=== PATIENT | male | born 1960 | race Caucasian/White ===

== ENCOUNTER 2018-06-05 13:16 | Inpatient (IN) | payer SELFPAY ==
[~2018-06-05] VITALS: Ht 175.3 cm; Wt 64.0 kg
[2018-06-05] MEDS ORDERED: NS IV 500 ML 500 ML IV ONE (14:10)
[2018-06-05] MEDS ORDERED: ONDANSETRON 4 MG/2 ML (SDV) Z0FRAN IVP ONE (14:15)
[2018-06-05 14:20] LABS: BASOPHILS % (AUTO) 1 % (0-10); EOSINOPHILS # (AUTO) 0.1 10^3/uL (0.0-0.3); EOSINOPHILS % (AUTO) 2 % (0-10); HEMATOCRIT 30 % (40-54); HEMOGLOBIN 9.5 G/DL (13.3-17.7); LYMPHOCYTES # (AUTO) 1.3 X 10^3 (1.0-4.0); LYMPHOCYTES % (AUTO) 37 % (12-44); MEAN CORPUSCULAR HEMOGLOBIN 27 PG (25-34); MEAN CORPUSCULAR HGB CONC 32 G/DL (32-36); MEAN CORPUSCULAR VOLUME 83 FL (80-99); MEAN PLATELET VOLUME 9.8 FL (7.4-10.4); MONOCYTES # (AUTO) 0.5 X 10^3 (0.0-1.0); MONOCYTES % (AUTO) 16 % (0-12); NEUTROPHILS # (AUTO) 1.6 X 10^3 (1.8-7.8); NEUTROPHILS % (AUTO) 45 % (42-75); PLATELET COUNT 92 10^3/uL (130-400); RED BLOOD COUNT 3.56 10^6/uL (4.35-5.85); RED CELL DISTRIBUTION WIDTH 17.4 % (10.0-14.5); WHITE BLOOD COUNT 3.5 10^3/uL (4.3-11.0)
[2018-06-05] MEDS ORDERED: LACT10SO46 PO (14:27)
[2018-06-05] MEDS ORDERED: MIDO10TA PO (14:27)
[2018-06-05] MEDS ORDERED: FURO40TA4 PO (14:27)
[2018-06-05] MEDS ORDERED: PANT40TA2 PO (14:27)
[2018-06-05] MEDS ORDERED: OXYC10TA7 PO (14:27)
[2018-06-05] MEDS ORDERED: SPIR100T4 PO (14:27)
--- NOTE | 2018-06-05 14:34 | ED GI ---
General Chief Complaint: Catheter/Drain/Tube Problems Stated Complaint: DRAIN TUBE LEAKING Nursing Triage Note: ARRIVED VIA AMB WITH WALKER TO ROOM 05. UPON WALKING PT IS LEAKING COPIUS AMTS OF FLUID FROM DRAINS IN STOMACH ONTO THE FLOOR. STATES HE MOVED HERE TWO DAYS AGO FROM [facility] AN HAD THE DRAINS PUT IN IN FEBRUARY FOR LIVER FAILURE. ALSO STATES HE HAS A UNDIAGNOSED CANCER OF THE ABD. WANTING TO START HEALTHCARE HERE AND POSSIBLY PUT ON HOSPICE IF NEEDED. Sepsis Screen: No Definite Risk Source of Information: Patient, Family Exam Limitations: No Limitations History of Present Illness Date Seen by Provider: Jun 05, 2018 Time Seen by Provider: 13:55 Initial Comments Here with report of having some medical condition that requires multiple tubes in his stomach and that seizure leaking or falling out. Reports that he has liver failure and hepatitis C which were from drinking. He quit drinking 20 years ago. He just got out of alf 3 days ago. Apparently he is had multiple episodes of and ultimately they released him from alf. He apparently had episodes where he vomited blood and required transfusions. He was in alf for a half years and has had these problems over the last 3 months. It started with him vomiting blood and then resuscitation followed by what he describes as and resuscitation at least 2 more times. These were also associated with vomiting blood. They did place the tubes to drain his belly because it keeps filling up (paracenteses 3 ports it appears). States that his tube is leaking but he arrives without any tubes in his belly. They drove in from [place] over the last 3 days and have been home just now recently. They considered hospice previously but they don't have a known diagnosis. He reports that he has a big mass in his belly centrally but he is not sure what that is. He does believe it is probably cancer but not sure. Timing/Duration: 2-3 Days, Getting Worse Severity/Quality: Moderate, Severe Location: Generalized Abdomen Radiation: No Radiation Activities at Onset: None Modifying Factors: Improves With Resting Associated Symptoms: No Back Pain, No Chest Pain, No Fever/Chills; Fatigue, Nausea/Vomiting; No Shortness of Air; Swelling/Mass in Abdomen, Weakness Allergies and Home Medications Allergies Coded Allergies: No Known Drug Allergies (Unverified , 06/05/18) Home Medications Furosemide 40 Mg Tablet, 40 MG PO DAILY, (Reported) Lactulose 10 Gm/15 Ml Solution, 15 ML PO DAILY, (Reported) Midodrine HCl 10 Mg Tablet, 10 MG PO TID, (Reported) Oxycodone HCl 10 Mg Tablet, 10 MG PO Q6H PRN for PAIN-SEVERE, (Reported) Pantoprazole Sodium 40 Mg Tablet.dr, 40 MG PO DAILY, (Reported) Spironolactone 100 Mg Tablet, 100 MG PO DAILY, (Reported) Patient Home Medication List Home Medication List Reviewed: Yes Review of Systems Review of Systems Constitutional: see HPI; No chills, No fever EENTM: No Symptoms Reported Respiratory: Denies Cough; Shortness of Air Cardiovascular: No Symptoms Reported Gastrointestinal: See HPI, Abdomen Distended; Denies Diarrhea; Nausea, Poor Appetite; Denies Vomiting Genitourinary: No Symptoms Reported Musculoskeletal: no symptoms reported Skin: no symptoms reported Psychiatric/Neurological: No Symptoms Reported All Other Systems Reviewed Negative Unless Noted: Yes Past Lrmenhj-Jwoget-Wwbxwm Hx Past Med/Social Hx: Reviewed Nursing Past Med/Soc Hx Patient Social History Alcohol Use: Denies Use Recreational Drug Use: No Smoking Status: Former Smoker Former Smoker, Quit: Feb 25, 2018 Recent Foreign Travel: No Contact w/Someone Who Travel: No Recent Infectious Disease Expo: No Past Medical History Surgeries: Yes Abdominal Respiratory: No Cardiac: No Neurological: No Gastrointestinal: Yes Liver Disease/Jaundice, Gastrointestinal Bleed Musculoskeletal: No Endocrine: No Cancer: Yes Family Medical History Reviewed Nursing Family Hx Physical Exam Vital Signs Vital Signs - First Documented 06/05/18 14:12 Temp 98.0 Pulse 97 Resp 16 B/P (MAP) 109/73 (85) Capillary Refill : Less Than 3 Seconds Height/Weight/BMI Height: 5'9.00" Weight: 169lbs. oz. 76.523342lz; BMI Method:Stated General Appearance: WD/WN, no apparent distress HEENT: PERRL/EOMI, pharynx normal, scleral icterus (R), scleral icterus (L) Neck: full range of motion, supple Respiratory: lungs clear, normal breath sounds Cardiovascular: regular rate, rhythm, no murmur Peripheral Pulses: 2+ Dorsalis Pedis (R), 2+ Left Dors-Pedis (L), 2+ Radial Pulses (R), 2+ Radial Pulses (L) Gastrointestinal: soft; No guarding, No rebound; tenderness, other (mild has pressure wound to the right and left lateral lower abdominal wall from previous paracenteses. He has a central one that appears to be still draining. The left one also appears to be still draining but the right one does not.) Extremities: non-tender, normal inspection Back: normal inspection, no CVA tenderness, no vertebral tenderness Male: other (has lesion to the right lateral aspect of the penis that he is unsure where it comes from. Does have 1 cm decubitus ulcer at the distal sacrum midline on the buttocks.) Neurologic/Psychiatric: alert, oriented x 3 Skin: jaundice; No rash Focused Exam Lactate Level 06/05/18 14:08: Lactic Acid Level 3.40*H Lactic Acid Level Laboratory Tests Test 06/05/18 14:08 Lactic Acid Level 3.40 MMOL/L (0.50-2.00) *H Progress/Results/Core Measures Results/Orders Lab Results Laboratory Tests Test 06/05/18 14:08 06/05/18 15:00 Range/Units White Blood Count 3.5 L 4.3-11.0 10^3/uL Red Blood Count 3.56 L 4.35-5.85 10^6/uL Hemoglobin 9.5 L 13.3-17.7 G/DL Hematocrit 30 L 40-54 % Mean Corpuscular Volume 83 80-99 FL Mean Corpuscular Hemoglobin 27 25-34 PG Mean Corpuscular Hemoglobin Concent 32 32-36 G/DL Red Cell Distribution Width 17.4 H 10.0-14.5 % Platelet Count 92 L 130-400 10^3/uL Mean Platelet Volume 9.8 7.4-10.4 FL Neutrophils (%) (Auto) 45 42-75 % Lymphocytes (%) (Auto) 37 12-44 % Monocytes (%) (Auto) 16 H 0-12 % Eosinophils (%) (Auto) 2 0-10 % Basophils (%) (Auto) 1 0-10 % Neutrophils # (Auto) 1.6 L 1.8-7.8 X 10^3 Lymphocytes # (Auto) 1.3 1.0-4.0 X 10^3 Monocytes # (Auto) 0.5 0.0-1.0 X 10^3 Eosinophils # (Auto) 0.1 0.0-0.3 10^3/uL Basophils # (Auto) 0.0 0.0-0.1 10^3/uL Sodium Level 127 L 135-145 MMOL/L Potassium Level 4.2 3.6-5.0 MMOL/L Chloride Level 94 L 98-107 MMOL/L Carbon Dioxide Level 26 21-32 MMOL/L Anion Gap 7 5-14 MMOL/L Blood Urea Nitrogen 17 7-18 MG/DL Creatinine 0.90 0.60-1.30 MG/DL Estimat Glomerular Filtration Rate > 60 BUN/Creatinine Ratio 19 Glucose Level 125 H 70-105 MG/DL Lactic Acid Level 3.40 *H 0.50-2.00 MMOL/L Calcium Level 8.1 L 8.5-10.1 MG/DL Corrected Calcium 9.8 8.5-10.1 MG/DL Total Bilirubin 6.2 H 0.1-1.0 MG/DL Aspartate Amino Transf (AST/SGOT) 150 H 5-34 U/L Alanine Aminotransferase (ALT/SGPT) 86 H 0-55 U/L Alkaline Phosphatase 117 40-136 U/L Ammonia 78 H 11-32 UMOL/L Total Protein 6.4 6.4-8.2 GM/DL Albumin 1.9 L 3.2-4.5 GM/DL Amylase Level 29 25-125 U/L Lipase 122 H 8-78 U/L Urine Color YELLOW Urine Clarity CLEAR Urine pH 5 5-9 Urine Specific [place] 1.010 L 1.016-1.022 Urine Protein 1+ H NEGATIVE Urine Glucose (UA) NEGATIVE NEGATIVE Urine Ketones NEGATIVE NEGATIVE Urine Nitrite NEGATIVE NEGATIVE Urine Bilirubin 1+ H NEGATIVE Urine Urobilinogen 8 H NORMAL MG/DL Urine Leukocyte Esterase 1+ H NEGATIVE Urine RBC (Auto) NEGATIVE NEGATIVE Urine RBC NONE /HPF Urine WBC RARE /HPF Urine Squamous Epithelial Cells NONE /HPF Urine Crystals NONE /LPF Urine Bacteria NEGATIVE /HPF Urine Casts PRESENT /LPF Urine Hyaline Casts 2-5 H /LPF Urine Mucus NEGATIVE /LPF Urine Yeast LARGE H /HPF Urine Culture Indicated NO My Orders Orders - JUDITH ABEBE MD Ammonia (06/05/18 14:10) Amylase (06/05/18 14:10) Cbc With Automated Diff (06/05/18 14:10) Comprehensive Metabolic Panel (06/05/18 14:10) Lactic Acid Analyzer (06/05/18 14:10) Lipase (06/05/18 14:10) Ua Culture If Indicated (06/05/18 14:10) Blood Culture (06/05/18 14:10) Saline Lock/Iv-Start (06/05/18 14:10) Ns Iv 500 Ml (Sodium Chloride 0.9%) (06/05/18 14:10) Ondansetron Injection (Zofran Injectio (06/05/18 14:15) Ct Chest/Abdomen/Pelvis W (06/05/18 14:49) Iohexol Injection (Omnipaque 350 Mg/Ml 1 (06/05/18 15:00) Ns (Ivpb) (Sodium Chloride 0.9%) (06/05/18 15:00) Medications Given in ED Current Medications Medications Dose Ordered Sig/Jesusita Route Start Time Stop Time Status Last Admin Dose Admin Iohexol 100 ml ONCE ONCE IV 06/05/18 15:00 06/05/18 15:06 DC 06/05/18 15:13 100 ML Ondansetron HCl 4 mg ONCE ONCE IVP 06/05/18 14:15 06/05/18 14:16 DC 06/05/18 14:19 4 MG Sodium Chloride 250 ml ONCE ONCE IV 06/05/18 15:00 06/05/18 15:06 DC 06/05/18 15:14 80 ML Sodium Chloride 500 ml @ 0 mls/hr Q0M ONCE IV 06/05/18 14:10 06/05/18 14:13 DC 06/05/18 14:20 500 MLS/HR Vital Signs/I&O 06/05/18 14:12 Temp 98.0 Pulse 97 Resp 16 B/P (MAP) 109/73 (85) Blood Pressure Mean: 85 Progress Progress Note : Progress Note Seen and evaluated. This is a very complex case in that the patient likely has liver failure in the setting of hepatitis C and probable abdominal mass. We had no records and he is a very poor historian. Given that, we will go ahead and check labs and UA and anticipate CT scan with contrast depending on renal function. CT results noted. I did discuss the case with Dr. Villarreal at 1601 and she will see the patient in the ER. I have also asked the palliative care team to evaluate as well. I will also call Dr. Mas and asked for consult from him as well due to the need for possible paracentesis. 1630: Dr. Villarreal and Devon Abebe in the emergency department evaluating the patient. We did discuss with the patient and family together regarding his current situation. Patient is at end-stage liver disease with low albumin and a large mass within the belly and abdominal ascites. This is in the setting of cirrhosis and hepatitis C. The large mass in the abdomen appears to be emanating from the left lobe of the liver consistent with hepatocellular carcinoma. We did discuss with the patient that this is not compatible with treatment and we talked about hospice. The patient and family are both in agreement with hospice and comfort measures. Dr. Villarreal has graciously accepted the patient for admission to set up hospice care. Devon Abebe with palliative care will assist with hospice management. Admit, observation status. Patient and family agree with plan. Diagnostic Imaging Diagonstic Imaging: CT Plain Films/CT/US/NM/MRI: chest, abdomen, pelvis Comments VIA [facility]. [place], [place] NAME: ALISHA DALEY [facility] REC#: [id number] PT STATUS: REG ER : 1960 PHYSICIAN: JUDITH ABEBE MD ADMIT DATE: 06/05/18/ER Draft Date of Exam:06/05/18 CT CHEST/ABDOMEN/PELVIS W PROCEDURE: CT chest, abdomen, and pelvis with contrast. TECHNIQUE: Multiple contiguous axial images were obtained through the chest, abdomen, and pelvis after the administration of intravenous contrast. INDICATION: Abdominal pain and nausea. History of liver problems. FINDINGS: There is a large calcified granuloma in the right lower lobe. There are no other discrete pulmonary nodules, masses, or infiltrates. There is no pleural or pericardial fluid. There is no pneumothorax. There is no pathologically enlarged adenopathy in the chest. There is a macronodular cirrhotic appearance of the liver. There appears to be a large heterogeneous mass projected exophytically off the left lobe of the liver. This is either cystic or necrotic centrally. Mass measures roughly 16 cm AP x 13 cm transverse x 12 cm craniocaudal. Gallbladder is grossly unremarkable. There is splenomegaly. The pancreas is largely obscured by the large mass. Pancreatic head is grossly unremarkable. Adrenal glands and kidneys are unremarkable. There is some atherosclerotic calcification of the aorta which is nonaneurysmal. There is some perihepatic and perisplenic ascites. Bowel gas pattern is nonspecific. There is pelvic ascites. Bladder is unremarkable. There are degenerative changes in the spine. IMPRESSION: 1. No acute abnormality in the chest. 2. Macronodular cirrhotic appearance of the liver with ascites and splenomegaly, compatible with portal venous hypertension. 3. Large heterogeneous mass that appears to extend exophytically off the left lobe of the liver. This is highly suspicious for hepatocellular carcinoma. If any prior studies are available for comparison, this would be helpful. 4. Moderate-volume ascites. Dictated on workstation # [id number] Dict: 06/05/18 1553 Trans: 06/05/18 1602 [id number] Interpreted by: BENY MERCHANT MD Electronically signed by: Departure Communication (Admissions) Time/Spoke to Admitting Phy: 16:09 Time/Spoke to Consulting Phy: 16:00 Impression Primary Impression: End stage liver disease Additional Impressions: Liver tumor or cancer Ascites Qualified Codes: R18.8 - Other ascites Disposition: ADMITTED INPATIENT Condition: Stable Admissions Decision to Admit Reason: Admit from ER (General) Decision to Admit/Date: Jun 05, 2018 Time/Decision to Admit Time: 16:00 JUDITH ABEBE MD Jun 05, 2018 14:34
[2018-06-05 14:38] LABS: ALANINE AMINOTRANSFERASE 86 U/L (0-55); ALBUMIN 1.9 GM/DL (3.2-4.5); ALKALINE PHOSPHATASE 117 U/L (40-136); AMMONIA 78 UMOL/L (11-32); AMYLASE 29 U/L (25-125); BILIRUBIN,TOTAL 6.2 MG/DL (0.1-1.0); BUN/CREATININE RATIO 19; CALCIUM 8.1 MG/DL (8.5-10.1); CARBON DIOXIDE 26 MMOL/L (21-32); CHLORIDE 94 MMOL/L (98-107); GFR ESTIMATED > 60; GLUCOSE 125 MG/DL (70-105); LIPASE 122 U/L (8-78); POTASSIUM 4.2 MMOL/L (3.6-5.0); SODIUM 127 MMOL/L (135-145); TOTAL PROTEIN 6.4 GM/DL (6.4-8.2)
[2018-06-05] MEDS ORDERED: IOHEXOL 350 MG/ML 100 ML (OMNIPAQUE 350) VIAL IV ONE (15:00)
[2018-06-05] MEDS ORDERED: NS 250 ML (IVPB) BAG IV ONE (15:00)
[2018-06-05 15:07] LABS: CLARITY,URINE CLEAR; COLOR,URINE YELLOW; GLUCOSE, URINE (UA) NEGATIVE (NEGATIVE); KETONES,URINE NEGATIVE (NEGATIVE); LEUKOCYTE ESTERASE ,URINE 1+ (NEGATIVE); NITRITE,URINE NEGATIVE (NEGATIVE); PH,URINE 5 (5-9); PROTEIN,URINE 1+ (NEGATIVE); UROBILINOGEN,URINE 8 MG/DL (NORMAL)
[2018-06-05 15:16] LABS: BACTERIA,URINE NEGATIVE /HPF; WBC,URINE RARE /HPF; YEAST,URINE LARGE /HPF
[2018-06-05 15:20] LABS: BILIRUBIN,URINE 1+ (NEGATIVE)
--- NOTE | 2018-06-05 16:02 | Diagnostic Imaging Report ---
PROCEDURE: CT chest, abdomen, and pelvis with contrast. TECHNIQUE: Multiple contiguous axial images were obtained through the chest, abdomen, and pelvis after the administration of intravenous contrast. INDICATION: Abdominal pain and nausea. History of liver problems. FINDINGS: There is a large calcified granuloma in the right lower lobe. There are no other discrete pulmonary nodules, masses, or infiltrates. There is no pleural or pericardial fluid. There is no pneumothorax. There is no pathologically enlarged adenopathy in the chest. There is a macronodular cirrhotic appearance of the liver. There appears to be a large heterogeneous mass projected exophytically off the left lobe of the liver. This is either cystic or necrotic centrally. Mass measures roughly 16 cm AP x 13 cm transverse x 12 cm craniocaudal. Gallbladder is grossly unremarkable. There is splenomegaly. The pancreas is largely obscured by the large mass. Pancreatic head is grossly unremarkable. Adrenal glands and kidneys are unremarkable. There is some atherosclerotic calcification of the aorta which is nonaneurysmal. There is some perihepatic and perisplenic ascites. Bowel gas pattern is nonspecific. There is pelvic ascites. Bladder is unremarkable. There are degenerative changes in the spine. IMPRESSION: 1. No acute abnormality in the chest. 2. Macronodular cirrhotic appearance of the liver with ascites and splenomegaly, compatible with portal venous hypertension. 3. Large heterogeneous mass that appears to extend exophytically off the left lobe of the liver. This is highly suspicious for hepatocellular carcinoma. If any prior studies are available for comparison, this would be helpful. 4. Moderate-volume ascites. Dictated by: Dictated on workstation # [id number]
--- NOTE | 2018-06-05 16:54 | History & Physical-Hospitalist ---
History of Present Illness Source: patient, family Date Seen 06/05/18 Time Seen by a Provider: 16:52 Attending Physician Juana Villarreal MD PCP Referring Physician Date of Admission Jun 05, 2018 at 16:44 Home Medications & Allergies Home Medications Reviewed patient Home Medication Reconciliation performed by pharmacy medication reconciliations scale technician and/or nursing. Patients Allergies have been reviewed. Allergies Allergies Coded Allergies No Known Drug Allergies (Cctodzhbuu49/9/18) Past Vapqshm-Ecmpku-Kdzrco Hx Past Med/Social Hx: Reviewed Nursing Past Med/Soc Hx Patient Social History Alcohol Use: Denies Use Recreational Drug Use: No Smoking Status: Former Smoker Former Smoker, Quit: Feb 25, 2018 Recent Foreign Travel: No Contact w/other who traveled: No Recent Hopitalizations: Yes ([facility] IN FEBRUARY) Recent Infectious Disease Expo: No Past Medical History Surgeries: Abdominal Gastrointestinal: Liver Disease/Jaundice, Gastrointestinal Bleed Skin/Integumentary: Recent Skin Changes Family History Reviewed Nursing Family Hx Physical Exam Physical Exam Vital Signs Vital Signs - First Documented 06/05/18 14:12 Temp 98.0 Pulse 97 Resp 16 B/P (MAP) 109/73 (85) Capillary Refill : Less Than 3 Seconds Height, Weight, BMI Height: 5'9.00" Weight: 169lbs. oz. 76.094858ov; BMI Method:Stated Results Results/Procedures Labs Laboratory Tests 06/05/18 14:08 Patient resulted labs reviewed. Assessment/Plan Admission Diagnosis End Stage Liver Disease Admission Status: Inpatient Order (span 2 midnights) Reason for Inpatient Admission: IV pain management, end of life care Diagnosis/Problems Diagnosis/Problems (1) End stage liver disease Status: Chronic Assessment & Plan: Has cancer of unknown origin but concerning for liver origin based off CT Patient has elected comfort care measures and would like to enroll in hospice Currently pain uncontrolled Will admit for aggressive symptom management with plan for DC to hospice at home when able JUANA VILLARREAL MD Jun 05, 2018 16:54
[2018-06-05] MEDS ORDERED: PROMETHAZINE INJ 25 MG/ML (PHENERGAN) AMP IVP PRN (17:00)
[2018-06-05] MEDS ORDERED: LORazepam INJ 2 MG/ML (ATIVAN) VIAL IVP PRN (17:00)
[2018-06-05] MEDS ORDERED: SALIVA STIMULANT MOUTH SPRAY (BIOTENE) 1.5 OZ MM PRN (17:00)
[2018-06-05] MEDS ORDERED: ACETAMINOPHEN 650 MG SUPP (TYLENOL) PR PRN (17:00)
[2018-06-05] MEDS ORDERED: morphine (ROXINOL) 10 MG/0.5 ML oral conc 0.5 ML PO PRN (17:00)
[2018-06-05] MEDS ORDERED: ARTIFICAL TEARS 0.4 ML UNIT DOSE (REFRESH PLUS) OU PRN (17:00)
[2018-06-05] MEDS ORDERED: SCOPOLAMINE 1.5 MG (TRANSDERM-SCOP) PATCH TOP SCH (17:00)
[2018-06-05] MEDS ORDERED: BISACODYL 10 MG SUPP (DULCOLAX) PR PRN (17:00)
[2018-06-05] MEDS ORDERED: ZINC OXIDE 16% OINT (BUTT PASTE) 113 GM TUBE TOP PRN (17:00)
[2018-06-05] MEDS ORDERED: RT-ALBUTEROL/IPRATROPIUM 3 ML (DUONEB) VIAL INH PRN (17:00)
[2018-06-05 17:40] VITALS: BP 109/55
--- NOTE | 2018-06-05 18:09 | Consultation ---
History of Present Illness History of Present Illness Patient Consulted On(alex/time) 06/05/18 18:04 Date Seen by Provider: Jun 05, 2018 Time Seen by Provider: 17:35 History of Present Illness Consulted by Dr Villarreal for drainage from drain tube site after drain tube was pulled out. 57 year old male with Hx of end stage liver disease, Hep C and Cancer that is concerning for liver cancer was admitted from the ED for drainage coming from his drain tube site after it was pulled out accidentally this morning. Pt had pleurx catheter placed in [place], they have been drainig significant amounts form it until removed today. Pt with no significant complaints of pain at this time, he understands that there is a mass that is non-operable, he is wanting to pursue hospice. Ct can reviewed demonstrating cirrhotic live, large mass appears to arise off liver. Allergies and Home Medications Allergies Coded Allergies: No Known Drug Allergies (Unverified , 06/05/18) Home Medications Furosemide 40 Mg Tablet, 40 MG PO DAILY, (Reported) Lactulose 10 Gm/15 Ml Solution, 15 ML PO DAILY, (Reported) Midodrine HCl 10 Mg Tablet, 10 MG PO TID, (Reported) Ondansetron 4 Mg Tab.rapdis, 4 MG SL Q4H PRN for NAUSEA/VOMITING-1ST LINE Prescribed by: JUANA VILLARREAL on 06/06/18 1033 Oxycodone HCl 10 Mg Tablet, 10 MG PO Q6H PRN for PAIN-SEVERE Prescribed by: JUANA VILLARREAL on 06/06/18 1033 Pantoprazole Sodium 40 Mg Tablet.dr, 40 MG PO DAILY, (Reported) Scopolamine 1 Each Patch.td72, 1.5 MG TOP Q72H Prescribed by: JUANA VILLARREAL on 06/06/18 1033 Spironolactone 100 Mg Tablet, 100 MG PO DAILY, (Reported) Patient Home Medication List Home Medication List Reviewed: Yes Past Buuqbih-Spjpqn-Xuafao Hx Patient Social History Alcohol Use: Denies Use Recreational Drug Use: No Smoking Status: Former Smoker Former Smoker, Quit: Feb 25, 2018 Recent Foreign Travel: No Contact w/Someone Who Travel: No Recent Infectious Disease Expo: No Recent Hopitalizations: Yes ([facility] IN FEBRUARY) Surgeries History of Surgeries: Yes Surgeries: Abdominal Respiratory History of Respiratory Disorde: No Cardiovascular History of Cardiac Disorders: No Neurological History of Neurological Disord: No Genitourinary History of Genitourinary Disor: No Gastrointestinal History of Gastrointestinal Di: Yes Gastrointestinal Disorders: Liver Disease/Jaundice, Gastrointestinal Bleed Musculoskeletal History of Musculoskeletal Dis: No Endocrine History of Endocrine Disorders: No HEENT History of HEENT Disorders: No Cancer History of Cancer: Yes Integumentary History of Skin or Integumenta: Yes (BREAKDOWN ON BOTTOM AND PENIS) Skin/Integumentary Disorders: Recent Skin Changes Family Medical History Significant Family History: No Pertinent Family Hx Review of Systems-General Constitutional: see HPI EENTM: no symptoms reported Respiratory: no symptoms reported Cardiovascular: no symptoms reported Gastrointestinal: see HPI Musculoskeletal: no symptoms reported Skin: see HPI Physical Exam-General Problems Physical Exam Vital Signs Vital Signs - First Documented 06/05/18 06/05/18 14:12 17:35 Temp 98.0 Pulse 97 Resp 16 B/P (MAP) 109/73 (85) Pulse Ox 98 O2 Delivery Room Air Capillary Refill : Less Than 3 Seconds General Appearance: no apparent distress HEENT: scleral icterus (R), scleral icterus (L) Neck: supple Respiratory: no respiratory distress Cardiovascular: regular rate, rhythm Gastrointestinal: distended (minimally), other (palpable mass midline, several draining skin openings in lower abdomen) Rectal: other (unstageable pressure ulcer midline buttocks) Neurologic/Psychiatric: alert, normal mood/affect Skin: jaundice Data Review Labs Laboratory Tests 06/05/18 14:08: White Blood Count 3.5L, Red Blood Count 3.56L, Hemoglobin 9.5L, Hematocrit 30L, Mean Corpuscular Volume 83, Mean Corpuscular Hemoglobin 27, Mean Corpuscular Hemoglobin Concent 32, Red Cell Distribution Width 17.4H, Platelet Count 92L, Mean Platelet Volume 9.8, Neutrophils (%) (Auto) 45, Lymphocytes (%) (Auto) 37, Monocytes (%) (Auto) 16H, Eosinophils (%) (Auto) 2, Basophils (%) (Auto) 1, Neutrophils # (Auto) 1.6L, Lymphocytes # (Auto) 1.3, Monocytes # (Auto) 0.5, Eosinophils # (Auto) 0.1, Basophils # (Auto) 0.0, Sodium Level 127L, Potassium Level 4.2, Chloride Level 94L, Carbon Dioxide Level 26, Anion Gap 7, Blood Urea Nitrogen 17, Creatinine 0.90, Estimat Glomerular Filtration Rate > 60, BUN/ Creatinine Ratio 19, Glucose Level 125H, Lactic Acid Level 3.40*H, Calcium Level 8.1L, Corrected Calcium 9.8, Total Bilirubin 6.2H, Aspartate Amino Transf (AST/SGOT) 150H, Alanine Aminotransferase (ALT/SGPT) 86H, Alkaline Phosphatase 117, Ammonia 78H, Total Protein 6.4, Albumin 1.9L, Amylase Level 29, Lipase 122H 06/05/18 15:00: Urine Color YELLOW, Urine Clarity CLEAR, Urine pH 5, Urine Specific [place] 1.010L, Urine Protein 1+H, Urine Glucose (UA) NEGATIVE, Urine Ketones NEGATIVE, Urine Nitrite NEGATIVE, Urine Bilirubin 1+H, Urine Urobilinogen 8H, Urine Leukocyte Esterase 1+H, Urine RBC (Auto) NEGATIVE, Urine RBC NONE, Urine WBC RARE, Urine Squamous Epithelial Cells NONE, Urine Crystals NONE, Urine Bacteria NEGATIVE, Urine Casts PRESENT, Urine Hyaline Casts 2-5H, Urine Mucus NEGATIVE, Urine Yeast LARGEH, Urine Culture Indicated NO Radiology IMPRESSION: 1. No acute abnormality in the chest. 2. Macronodular cirrhotic appearance of the liver with ascites and splenomegaly, compatible with portal venous hypertension. 3. Large heterogeneous mass that appears to extend exophytically off the left lobe of the liver. This is highly suspicious for hepatocellular carcinoma. If any prior studies are available for comparison, this would be helpful. 4. Moderate-volume ascites. Assessment/Plan Assessment/Plan Assessment/Plan End stage liver disease ascites intraabdominal mass unstageable pressure ulcer Hep C Drainage management with colostomy collection device if ascites builds up significantly could drain if desired. Consulting hospice for comfort care, no surgical intervention at this time. discussed with pt and that care is to give quality not quantity and they are in agreement. All questions answered Will follow Physician Assessment Physician Assessment Scribed by Noe Gandhi MS3 [employer] Jun 05, 2018 18:09 DEON CLAIRE DO Jun 06, 2018 11:48
[2018-06-05] MEDS ORDERED: FLU QUADRIvalent (5+ YOA) 2018-2019 (AFLURIA) 0.5 ML IM ONE (18:30)
[2018-06-05] MEDS: ONDANSETRON 4 MG/2 ML (SDV) Z0FRAN IVP PRN (22:12)
[2018-06-06 00:27] VITALS: BP 94/60
[2018-06-06 08:00] VITALS: BP 106/53
[2018-06-06] MEDS ORDERED: PANTOPRAZOLE 40 MG (PROTONIX) TAB PO SCH (09:00)
[2018-06-06] MEDS ORDERED: SPIRONOLACTONE 100 MG (ALDACTONE) TABLET PO SCH (09:00)
[2018-06-06] MEDS ORDERED: LACTULOSE SYRUP 10GM/15ML (ENULOSE) 30ML UDC PO SCH (09:00)
[2018-06-06] MEDS ORDERED: FUROSEMIDE 40 MG (LASIX) TAB PO SCH (09:00)
[2018-06-06] MEDS: ONDANSETRON 4 MG/2 ML (SDV) Z0FRAN IVP PRN (09:38)
[2018-06-06] MEDS ORDERED: OXYC10TA7 PO (10:33)
[2018-06-06] MEDS ORDERED: ONDA4TAB8 SL (10:33)
[2018-06-06] MEDS ORDERED: SCOP1PAT11 TOP (10:33)
--- NOTE | 2018-06-06 10:38 | Discharge Summary-Hospitalist ---
Diagnosis/Chief Complaint Date of Admission Jun 05, 2018 at 16:44 Date of Discharge Discharge Date: Jun 06, 2018 Admission Diagnosis End Stage Liver Disease Discharge Diagnosis (1) End stage liver disease Status: Chronic Assessment & Plan: Has cancer of unknown origin but concerning for liver origin based off CT Patient has elected comfort care measures and would like to enroll in hospice Met with [facility] would like to DC home today with them Symptoms managed with current meds Discussed with Dr Mas and currently no option for further paracentesis or drainage I did discuss code status with patient and while he would still like to pursue hospice he wants to remain a full code at this time I gave my medical recommendation that that would not be beneficial to patient and would very likely do more harm than good Discharge Summary Discharge Physical Exam Allergies: Coded Allergies: No Known Drug Allergies (Unverified , 06/05/18) Vitals & I&Os Vital Signs Date Time Temp Pulse Resp B/P (MAP) Pulse Ox O2 Delivery O2 Flow Rate FiO2 06/06/18 08:55 Room Air 06/06/18 08:00 99.1 88 18 106/53 (70) 98 General Appearance: Chronically ill, Cachetic Respiratory: Lungs Clear, No Respiratory Distress Cardiovascular: Regular Rate, Rhythm, No Murmur Gastrointestinal: Non Tender, Soft, Distended; No Guarding Neurologic/Psychiatric: Alert, Oriented x3 Hospital Course Pt was admitted for symptom management of end stage liver disease. His abdominal pain was controlled with morphine. Given the extensive disease and large mass hospice was recommended. He agreed and selected [facility]. He was discharged home in improved condition with comfort meds with assistance from [facility]. Labs (last 24 hrs) Patient resulted labs reviewed. Discussion & Recommendations Discharge Planning: >30 minutes discharge planning Discharge Home Medications: Active Scripts Active Zofran Odt (Ondansetron) 4 Mg Tab.rapdis 4 Mg SL Q4H PRN Transderm-Scop (Scopolamine) 1 Each Patch.td72 1.5 Mg TOP Q72H Oxycodone HCl 10 Mg Tablet 10 Mg PO Q6H PRN Reported Midodrine HCl 10 Mg Tablet 10 Mg PO TID Generlac (Lactulose) 10 Gm/15 Ml Solution 15 Ml PO DAILY Furosemide 40 Mg Tablet 40 Mg PO DAILY Spironolactone 100 Mg Tablet 100 Mg PO DAILY Protonix (Pantoprazole Sodium) 40 Mg Tablet. 40 Mg PO DAILY Instructions to patient/family Please see electronic discharge instructions given to patient. Clinical Quality Measures DVT/VTE Risk/Contraindication: Risk Factor Score Per Nursin RFS Level Per Nursing on Admit: 3=High JUANA WHITE MD Jun 06, 2018 10:38 am
--- NOTE | 2018-06-06 10:56 | Occupational Therapy Eval ---
OT Evaluation-General/PLF Medical Diagnosis Admission Date Jun 05, 2018 at 16:44 Medical Diagnosis: End stage liver disease Onset Date: Jun 05, 2018 Therapy Diagnosis Therapy Diagnosis: decr funct mobility, weakness, decr self care, decr activity sybil Height/Weight Height (Feet): 5 Height (Inches): 9.00 Weight (Pounds): 141 Weight (Ounces): 1.0 Precautions Precautions/Isolations: Fall Prevention Safety Interventions: Bed Exit Alarm Referral Physician: Phil Referral Reason: Evaluation/Treatment Medical History Pertinent Medical History: Smoking Additional Medical History Drains put in February for liver failure. Hepatitis C, ascites. Hx vomiting blood. Jaundice. GI bleed. Current History Admitted from ED with liver failure. Has abdominal mass, suspicious of liver cancer. Has multiple drains in abdomen. Was recently released from skilled nursing and reported several episodes of resuscitation. Has open wound at top of buttocks fold and one on penis. Reviewed History: Yes Social History Home: Single Level Current Living Status: Spouse Entry Into Home: Stairs With Railing Steps Into Home: 3 ADL-Prior Level of Function ADL PLOF Comments Pt reported that he was previously able to manage his basic self care. He has been employed in construction. DME/Equipment: Tub/Shower Discussed grab bars, shower chair and BSC over toilet for home use. Occupation: construction OT Current Status Subjective Pt seen in room, agreeable to OT. Pain reported 10-11/10, in sore on bottom. Appearance Alert, cooperative Current Glasses/Contacts: Yes Hand Dominance: Right Upper Extremity ROM grossly WFl bilat Upper Extremity Strength grossly 4/5 bilat ADL-Treatment ADL-Current When OT walked into room, pt was attempting to move from recliner to bed, reaching unsteadily for bedside table and bed. His was helping him and OT also assisted. Pt education on need to call for help before getting up. He has reported to nursing that he can't walk and he has a 4WW in the room which he did not use. Recommend PT evaluation prior to discharge for safety. Pt reported that he has been using urinal but hasn't been up to have BM. Recommended to him and that he use BSC and call for help before getting up. Nursing notified of pt getting up unsafely. Functional [place] Measure 0=Not Assessed/NA 4=Minimal Assistance 1=Total Assistance 5=Supervision or Setup 2=Maximal Assistance 6=Modified [place] 3=Moderate Assistance 7=Complete IndependenceIRFPAI Quality Coding Scale 6 Independent with activity with or without an assistive device 5 Patient requires set up or clean up by helper. Patient completes activity by themselves 4 Supervision or touching assist (CGA). [place] provide cues , steadying assist 3 The helper provides less than half the effort to complete the activity 2 The helper provides more than half the effort to complete the activity 1 Dependent. The helper does all the effort to complete an activity 7 Patient refused to complete or attempt activity 9 The patient did not perform the activity before the current illness or injury 88 Not attempted due to Medical conditions or safety concerns Education OT Patient Education: Purpose of tx/functional activities, Rehab process, Safety issues, Transfer techniques, Use of adapted equipment Teaching Recipient: Patient, Family Teaching Methods: Discussion Response to Teaching: Verbalize Understanding OT Assisted Goals Assisted Goals Time Frame: Jun 09, 2018 Grooming(FIM): 5 Bathing(FIM): 5 Upper Body Dressing(FIM): 5 Lower Body Dressing(FIM): 5 Toileting(FIM): 5 Toilet/Commode Transfer(FIM): 5 Shower Transfer(FIM): 5 Additional Goals: 1-Demonstrate ADL Tasks, 2-Verbalize Understanding, 3- ImproveStrength/[place] 1=Demonstrate adherence to instructed precautions during ADL tasks. 2=Patient will verbalize/demonstrate understanding of assistive devices/ modifications for ADL. 3=Patient will improve strength/tolerance for activity to enable patient to perform ADL's. OT Education/Plan Problem List/Assessment Assessment: Decreased Activ Tolerance, Decreased Safety Aware, Decreased UE Strength, Dependent Transfers, Impaired Self-Care Skills Pt would benefit from skilled OT to increase his independence in basic self care to allow him to safely be discharged to home Discharge Recommendations Plan/Recommendations: Continue POC Treatment Plan/Plan of Care Treatment,Training & Education: Yes Patient would benefit from OT for education, treatment and training to promote independence in ADL's, mobility, safety and/or upper extremity function for ADL' s. Plan of Care: ADL Retraining, Functional Mobility, UE Funct Exercise/Act, UE Neuromus Re-Ed/Coord Treatment Duration: Jun 09, 2018 Frequency: 4 times per week Estimated Hrs Per Day: .25 hour per day Agreement: Yes Rehab Potential: Fair Time/GCodes Start Time: 09:15 Stop Time: 09:29 Total Time Billed (hr/min): 14 Billed Treatment Time visit, 14 minutes evaluation moderate intensity ELENI HERNANDEZ OT Jun 06, 2018 10:56
--- NOTE | 2018-06-06 11:25 | Progress Note ---
Subjective Date Seen by a Provider: Jun 06, 2018 Time Seen by a Provider: 09:00 Subjective/Events-last exam Pt doing better today. Pt is draining draining into colostomy collection device that was placed yesterday over draining sites on abdomen. Patient planning on Hospice care. Patient and feel current plan with ostomy collection is acceptable. Concerned if he get s increasing build up of fluid. Pt denies any N/V/D, abd pain, fever, CP, SOB. Focused Exam Lactate Level 06/05/18 14:08: Lactic Acid Level 3.40*H Objective Exam Vital Signs Date Time Temp Pulse Resp B/P (MAP) Pulse Ox O2 Delivery O2 Flow Rate FiO2 06/06/18 08:55 Room Air 06/06/18 08:00 99.1 88 18 106/53 (70) 98 Room Air 06/06/18 00:27 97.8 92 18 94/60 (71) 96 Room Air 06/05/18 19:28 Room Air 06/05/18 18:29 98 Room Air 06/05/18 17:40 97.3 80 18 109/55 (73) 97 Room Air 06/05/18 17:35 83 16 105/61 (76) 98 Room Air 06/05/18 14:12 98.0 97 16 109/73 (85) I & O 06/06/18 07:00 Intake Total 800 ml Output Total 450 ml Balance 350 ml Capillary Refill : Less Than 3 Seconds General Appearance: No Apparent Distress HEENT: Moist Mucous Membranes Neck: Normal Inspection, Supple Respiratory: No Accessory Muscle Use, No Respiratory Distress Cardiovascular: Regular Rate, Rhythm, No Edema Peripheral Pulses: 2+ Dorsalis Pedis (R), 2+ Left Dors-Pedis (L), 2+ Radial Pulses (R), 2+ Radial Pulses (L) Gastrointestinal: distended (minimally), other (palpable mass midline, several draining skin openings in lower abdomen draining into colostomy collection divice) Extremity: Normal Range of Motion Neurologic/Psychiatric: Alert, Oriented x3 Skin: Jaundice Other comments pressure ulcer unstageable Results Lab Laboratory Tests 06/05/18 14:08: White Blood Count 3.5L, Red Blood Count 3.56L, Hemoglobin 9.5L, Hematocrit 30L, Mean Corpuscular Volume 83, Mean Corpuscular Hemoglobin 27, Mean Corpuscular Hemoglobin Concent 32, Red Cell Distribution Width 17.4H, Platelet Count 92L, Mean Platelet Volume 9.8, Neutrophils (%) (Auto) 45, Lymphocytes (%) (Auto) 37, Monocytes (%) (Auto) 16H, Eosinophils (%) (Auto) 2, Basophils (%) (Auto) 1, Neutrophils # (Auto) 1.6L, Lymphocytes # (Auto) 1.3, Monocytes # (Auto) 0.5, Eosinophils # (Auto) 0.1, Basophils # (Auto) 0.0, Sodium Level 127L, Potassium Level 4.2, Chloride Level 94L, Carbon Dioxide Level 26, Anion Gap 7, Blood Urea Nitrogen 17, Creatinine 0.90, Estimat Glomerular Filtration Rate > 60, BUN/ Creatinine Ratio 19, Glucose Level 125H, Lactic Acid Level 3.40*H, Calcium Level 8.1L, Corrected Calcium 9.8, Total Bilirubin 6.2H, Aspartate Amino Transf (AST/SGOT) 150H, Alanine Aminotransferase (ALT/SGPT) 86H, Alkaline Phosphatase 117, Ammonia 78H, Total Protein 6.4, Albumin 1.9L, Amylase Level 29, Lipase 122H 06/05/18 15:00: Urine Color YELLOW, Urine Clarity CLEAR, Urine pH 5, Urine Specific [place] 1.010L, Urine Protein 1+H, Urine Glucose (UA) NEGATIVE, Urine Ketones NEGATIVE, Urine Nitrite NEGATIVE, Urine Bilirubin 1+H, Urine Urobilinogen 8H, Urine Leukocyte Esterase 1+H, Urine RBC (Auto) NEGATIVE, Urine RBC NONE, Urine WBC RARE, Urine Squamous Epithelial Cells NONE, Urine Crystals NONE, Urine Bacteria NEGATIVE, Urine Casts PRESENT, Urine Hyaline Casts 2-5H, Urine Mucus NEGATIVE, Urine Yeast LARGEH, Urine Culture Indicated NO Assessment/Plan Assessment/Plan Assessment/Plan End stage liver disease ascites intraabdominal mass unstageable pressure ulcer Hep C Drainage management with colostomy collection device if ascites builds up significantly could drain if desired. Consulting hospice for comfort care, no surgical intervention at this time. Patient planning on hospice. Will sign off, call if needed. Clinical Quality Measures DVT/VTE Risk/Contraindication: Risk Factor Score Per Nursin RFS Level Per Nursing on Admit: 3=High Physician Assessment Physician Assessment Scribed by Noe Benedict MS3 for PIPER Nice MEDICAL STUDENT Jun 06, 2018 11:25 DEON CLAIRE DO Jun 06, 2018 11:51
[2018-06-08] MEDS ORDERED: SCOPOLAMINE PATCH REMOVAL TP SCH (16:59)
== END 2018-06-06 15:00 | disposition hospice, home (50) | DRG 442 ==
LOC: ER 13:18 → 4TH 16:44 → UNDOADMOB 16:44 → 4TH 16:44 → UNDODISOB 06-06 15:00
PROVIDERS: ADMIT Family Medicine; ATTEND Family Medicine
DX: K72.90 Hepatic failure, unspecified without coma (principal); R18.8 Other ascites; B19.20 Unspecified viral hepatitis C without hepatic coma; L89.150 Pressure ulcer of sacral region, unstageable; R16.0 Hepatomegaly, not elsewhere classified; C80.1 Malignant (primary) neoplasm, unspecified; Z87.891 Personal history of nicotine dependence; Z79.899 Other long term (current) drug therapy
CPT/HCPCS: 36415; 71260; 74177; 80053; 81000; 82140; 82150; 83605; 83690; 85025; 87040